=== PATIENT | female | born 1965 | race Caucasian/White ===

== ENCOUNTER 2023-04-15 07:56 | Day surgery (SDC) | payer BC ==
[2023-04-10 13:44] VITALS: BMI 19.2
[2023-04-15] MEDS ORDERED: PROPOFOL 200 MG/20 ML VIAL ONE (09:26)
[2023-04-15] MEDS ORDERED: Lidocaine 1% PF 5 ML VIAL ONE (09:26)
== END 2023-04-15 10:38 | disposition home or self-care (01) ==
LOC: SDC 07:56
PROVIDERS: ATTEND Internal Medicine Gastroenterology
PROC: 0D758ZZ Dilation of Esophagus, Via Natural or Artificial Opening Endoscopic (ICD-10-PCS; principal; 2023-04-15)
DX: K22.2 Esophageal obstruction (principal); R10.13 Epigastric pain; R16.2 Hepatomegaly with splenomegaly, not elsewhere classified; I10 Essential (primary) hypertension; F32.A Depression, unspecified; Z90.710 Acquired absence of both cervix and uterus; Z90.89 Acquired absence of other organs; Z96.643 Presence of artificial hip joint, bilateral; Z79.899 Other long term (current) drug therapy
CPT/HCPCS: J2704

== ENCOUNTER 2023-08-05 08:21 | Day surgery (SDC) | payer BC ==
[2023-08-05 08:40] LABS: #Monocytes 0.7 thou/uL (0.11-0.59); %Basophils 0.1 % (0.0-1.0); %Lymphocytes 14.8 % (21.0-51.0); %Monocytes 7.1 % (0.0-10.0); Hematocrit 35.6 % (36.0-47.0); Hemoglobin 11.1 g/dL (12.0-16.0); Mean Corpuscular HGB CONC 31.2 g/dL (32.0-36.0); Mean Corpuscular Hemoglobin 26.5 pg (27.0-31.0); Mean Platelet Volume 8.9 fL (7.4-10.4); Platelet Count 330 10x3/uL (130-400); RBC Distribution Width 15.5 % (11.5-14.5); Red Blood Cell (RBC) Count 4.19 mill/uL (4.20-5.40); White Blood Cell (WBC) Count 10.3 10x3/uL (4.8-10.8)
[2023-08-05 08:54] LABS: PTT 23.4 sec (22.9-36.1); Prothrombin Time 13.9 sec (12.0-14.7)
[2023-08-05] MEDS ORDERED: FLU VACC QS2023-24(6MOS UP)/PF 60 MCG/0.5 ML SYRINGE IM ONE (09:00)
== END 2023-08-05 09:45 | disposition home or self-care (01) ==
LOC: CT 08:21
PROVIDERS: ATTEND Internal Medicine Nephrology
DX: I10 Essential (primary) hypertension (principal); Z53.09 Procedure and treatment not carried out because of other contraindication; N05.9 Unspecified nephritic syndrome with unspecified morphologic changes
CPT/HCPCS: 85025; 85610; 85730; 90471; 90686; G0008